=== PATIENT | male | born 1950 | race Caucasian/White ===

== ENCOUNTER 2017-08-29 13:47 | Emergency (ER) | payer OTHER ==
[~2017-08-29] VITALS: Ht 175.3 cm; Wt 82.0 kg
[2017-08-29 13:48] VITALS: BP 150/74; PULSE 77; RESP 16; TEMP 98.4; O2SAT 97
[2017-08-29] MEDS ORDERED: AMLO10TA2 PO (16:21)
[2017-08-29] MEDS ORDERED: LOSA100T2 PO (16:21)
[2017-08-29] MEDS ORDERED: GABA300C5 PO (16:21)
[2017-08-29] MEDS ORDERED: AMIO200T PO (16:21)
--- NOTE | 2017-08-29 16:21 | PD ---
HPI Chief Complaint: Medication Refill Request Time Seen by Provider: 15:57 Travel History International Travel<30 days: No Contact w/Intl Traveler<30days: No Traveled to known affect area: No History of Present Illness HPI Patient is a 59-year-old male who comes in for medication refills. He says he moved [place] and he cannot get an appointment with a doctor here until October 22. He has no medical complaints at this time. [facility], [facility] Past Medical History Anxiety: Yes Heart Rhythm Problems: Yes High Cholesterol: Yes Hypertension: Yes Neurologic: Yes (neuropathy ) Influenza Vaccination: Yes Social History Alcohol Use: No Tobacco Use: Yes (8 cigarettes per day) Substance Use: No Allergies-Medications (Allergen,Severity, Reaction): Coded Allergies: Sulfa (Sulfonamide Antibiotics) (Verified Allergy, Unknown, 08/29/17) Reported Meds & Prescriptions Reported Meds & Active Scripts Active Gabapentin 300 Mg Cap 300 Mg PO BID Losartan-Hydrochlorothiazide 100-25 Mg Tab 1 Tab PO DAILY Amiodarone (Amiodarone HCl) 200 Mg Tab 200 Mg PO DAILY Amlodipine (Amlodipine Besylate) 10 Mg Tab 10 Mg PO DAILY Review of Systems HENT: No: Headaches, Lightheadedness Cardiovascular: No: Chest Pain or Discomfort Respiratory: No: Shortness of Breath Gastrointestinal: No: Nausea, Vomiting Musculoskeletal: No: Myalgias Skin: No Rash, No Change in Pigmentation Neurologic: No: Weakness, Dizziness Physical Exam Narrative GENERAL: Awake and alert, in no acute distress. SKIN: Focused skin assessment warm/dry. HEAD: Atraumatic. Normocephalic. EYES: Pupils equal and round. No scleral icterus. Extraocular movements intact. ENT: Mucous membranes pink and moist. CARDIOVASCULAR: Regular rate and rhythm. No murmur appreciated. RESPIRATORY: No accessory muscle use. Clear to auscultation. Breath sounds equal bilaterally. MUSCULOSKELETAL: No obvious deformities. No clubbing. No cyanosis. No edema. NEUROLOGICAL: Awake and alert. No obvious cranial nerve deficits. Motor grossly within normal limits. Normal speech. Data Data Last Documented VS Vital Signs Date Time Temp Pulse Resp B/P (MAP) Pulse Ox O2 Delivery O2 Flow Rate FiO2 08/29/17 13:48 98.4 77 16 150/74 (99) 97 Room Air MDM Medical Decision Making Medical Screen Exam Complete: Yes Emergency Medical Condition: Yes Differential Diagnosis Medication refill versus hypertension versus lack of resources Narrative Course Patient is a 67-year-old male here for medication refill. He has no complaints at this time. Patient advised he should call his doctor for an earlier appointment. Advised he should also call his doctor in [place] for refills on his medications. He will be given prescriptions for his amlodipine, amiodarone , losartan, gabapentin. Advised to go to the [facility] if needed. Advised to return to the ED as needed for any worsening symptoms. Diagnosis Primary Impression: Medication refill Referrals: [facility] call for appointment Patient Instructions: General Instructions, Medicine Refill (ED) Additional Instructions: Follow-up with a primary care doctor. Return to the emergency department as needed for any worsening symptoms. Scripts Gabapentin (Gabapentin) 300 Mg Cap 300 MG PO BID, #60 CAP 0 Refills Prov: Janice Lou MD 08/29/17 Losartan-Hydrochlorothiazide (Losartan-Hydrochlorothiazide) 100-25 Mg Tab 1 TAB PO DAILY for Blood Pressure Management, #30 TAB 0 Refills Prov: Janice Lou MD 08/29/17 Amiodarone (Amiodarone) 200 Mg Tab 200 MG PO DAILY for Regulate Heart Beat, #30 TAB 0 Refills Prov: Janice Lou MD 08/29/17 Amlodipine (Amlodipine) 10 Mg Tab 10 MG PO DAILY for Blood Pressure Management, #30 TAB 0 Refills Prov: Janice Lou MD 08/29/17 Disposition: 01 DISCHARGE HOME Condition: Stable Janice Lou MD Aug 29, 2017 16:21
== END 2017-08-29 17:12 | disposition home or self-care (01) ==
LOC: NEPD 13:47
DX: Z76.0 Encounter for issue of repeat prescription (principal); F41.9 Anxiety disorder, unspecified; E78.00 Pure hypercholesterolemia, unspecified; I10 Essential (primary) hypertension; G62.9 Polyneuropathy, unspecified; F17.210 Nicotine dependence, cigarettes, uncomplicated; Z79.899 Other long term (current) drug therapy
CPT/HCPCS: 99281

== ENCOUNTER 2017-10-23 16:53 | Emergency (ER) | payer OTHER ==
[~2017-10-23 16:53] MED LIST: AMIO200T PO; AMLO10TA2 PO; GABA300C5 PO; LOSA100T2 PO
[2017-10-23 16:54] VITALS: BP 145/67; PULSE 64; RESP 16; TEMP 98.2; O2SAT 99
[2017-10-23] MEDS ORDERED: IOHEXOL 350 MG/ML 10 ML VIAL (for RAD DIAG) IVCONTRAST ONE (16:54)
[2017-10-23] MEDS ORDERED: ASPI-516 CHEW (18:27)
[2017-10-23 19:10] LABS: AUTOMATED NEUTROPHIL # 8.4 TH/MM3 (1.8-7.7); BASOPHIL % 0.4 % (0.0-2.0); EOSINOPHIL # 0.1 TH/MM3 (0-0.4); EOSINOPHIL % 0.5 % (0.0-4.0); HEMATOCRIT 40.7 % (39.0-51.0); HEMOGLOBIN 13.9 GM/DL (13.0-17.0); LYMPH % 19.4 % (9.0-44.0); LYMPHOCYTE # 2.2 TH/MM3 (1.0-4.8); MEAN CELL VOLUME 90.8 FL (80.0-100.0); MEAN CORPUSCULAR HEMOGLOBIN 30.9 PG (27.0-34.0); MEAN PLATELET VOLUME 9.1 FL (7.0-11.0); MONO % 4.8 % (0.0-8.0); MONOCYTE # 0.5 TH/MM3 (0-0.9); NEUT % 74.9 % (16.0-70.0); PLATELET COUNT 286 TH/MM3 (150-450); RED BLOOD COUNT 4.49 MIL/MM3 (4.50-5.90); RED CELL DISTRIBUTION WIDTH 13.1 % (11.6-17.2); WHITE BLOOD COUNT 11.2 TH/MM3 (4.0-11.0)
[2017-10-23 19:14] LABS: ALBUMIN 3.7 GM/DL (3.4-5.0); AST (GOT) 13 U/L (15-37); BICARBONATE 31.4 MEQ/L (21.0-32.0); BLOOD UREA NITROGEN 18 MG/DL (7-18); CHLORIDE 105 MEQ/L (98-107); GLOMERULAR FILTRATION RATE 84 ML/MIN (>89); GLUCOSE,RANDOM 98 MG/DL (74-106); SODIUM (NA) 142 MEQ/L (136-145)
[2017-10-23 19:15] LABS: ALT (GPT) 24 U/L (12-78)
[2017-10-23 19:17] LABS: ALKALINE PHOSPHATASE 81 U/L (45-117); TOTAL BILIRUBIN ADULT 0.5 MG/DL (0.2-1.0); TOTAL PROTEIN 7.2 GM/DL (6.4-8.2)
--- NOTE | 2017-10-23 19:46 | PD ---
HPI Chief Complaint: GI Complaint Time Seen by Provider: 18:28 Travel History International Travel<30 days: No Contact w/Intl Traveler<30days: No Traveled to known affect area: No History of Present Illness HPI 67-year-old male that presents to the ED for evaluation of lower abdominal pain with also constipation. Per patient his been having sensation of having to go have a stool for the past couple days but nothing coming out. Per patient he gets minimal relief. He did have a bowel movement today will was small and it was like miguelito. Patient comes here with a piece of paper that shows different types of stool and she points to the one on the top. The patient his stool is usually normal but for the past 2 months as been like this. Per patient she does have lower abdominal discomfort. Feels like he has to strain. He denies any urinary symptoms. No chest pain or shortness of breath. No nausea or vomiting. He has no medical provider at this time and came here to get evaluated and help. Per patient the pain is 4 out of 10. No blood in the stool. No changes in the color of the stool. PFSH Past Medical History Anxiety: Yes Heart Rhythm Problems: Yes Cardiovascular Problems: Yes High Cholesterol: Yes Hypertension: Yes Medical other: Yes (skin cancer) Neurologic: Yes (neuropathy ) Tetanus Vaccination: Unknown Influenza Vaccination: Yes Past Surgical History Other Surgery: Yes (colonoscopy, endoscopy) Social History Alcohol Use: No Tobacco Use: Yes (8 cigarettes per day) Substance Use: No Allergies-Medications (Allergen,Severity, Reaction): Coded Allergies: Sulfa (Sulfonamide Antibiotics) (Verified Allergy, Unknown, 10/23/17) Reported Meds & Prescriptions Reported Meds & Active Scripts Active Miralax Powder (Polyethylene Glycol 3350 Powder) 17 Gm Powd 17 Gm PO DAILY Mix and dissolve one measuring cap-ful (17 grams) in water or juice. Golytely 236 gm (Polyethylene Glycol/Electrolytes) 4,000 Ml Soln 4,000 Ml PO ONCE Gabapentin 300 Mg Cap 300 Mg PO BID Losartan-Hydrochlorothiazide 100-25 Mg Tab 1 Tab PO DAILY Amiodarone (Amiodarone HCl) 200 Mg Tab 200 Mg PO DAILY Amlodipine (Amlodipine Besylate) 10 Mg Tab 10 Mg PO DAILY Reported Aspirin 81 Mg Chew 81 Mg CHEW DAILY Review of Systems Except as stated in HPI: all other systems reviewed are Neg Physical Exam Narrative GENERAL: SKIN: Warm and dry. HEAD: Atraumatic. Normocephalic. EYES: Pupils equal and round. No scleral icterus. No injection or drainage. ENT: No nasal bleeding or discharge. Mucous membranes pink and moist. Tongue is midline. No uvula deviation. NECK: Trachea midline. No JVD. CARDIOVASCULAR: Regular rate and rhythm. No murmurs, S3, S4. RESPIRATORY: No accessory muscle use. Clear to auscultation. Breath sounds equal bilaterally. GASTROINTESTINAL: Abdomen soft, has reproducible pain in the lower abdomen with deep palpation, nondistended. Hepatic and splenic margins not palpable. MUSCULOSKELETAL: Extremities without clubbing, cyanosis, or edema. No obvious deformities. Full range of motion of the upper and lower extremities bilaterally. 2+ pulses bilaterally. NEUROLOGICAL: Awake and alert. No obvious cranial nerve deficits. Motor grossly within normal limits. Five out of 5 muscle strength in the arms and legs. Normal speech. PSYCHIATRIC: Appropriate mood and affect; insight and judgment normal. Data Data Last Documented VS Vital Signs Date Time Temp Pulse Resp B/P (MAP) Pulse Ox O2 Delivery O2 Flow Rate FiO2 10/23/17 19:57 97.9 68 15 156/79 (104) 98 Room Air Orders Orders Complete Blood Count With Diff (10/23/17 18:36) Comprehensive Metabolic Panel (10/23/17 18:36) Ct Abd/Pel W Iv Contrast(Rout) (10/23/17 18:36) Iv Access Insert/Monitor (10/23/17 18:36) Iohexol 350 Inj (Omnipaque 350 Inj) (10/23/17 16:54) Labs Laboratory Tests Test 10/23/17 18:40 White Blood Count 11.2 TH/MM3 Red Blood Count 4.49 MIL/MM3 Hemoglobin 13.9 GM/DL Hematocrit 40.7 % Mean Corpuscular Volume 90.8 FL Mean Corpuscular Hemoglobin 30.9 PG Mean Corpuscular Hemoglobin Concent 34.0 % Red Cell Distribution Width 13.1 % Platelet Count 286 TH/MM3 Mean Platelet Volume 9.1 FL Neutrophils (%) (Auto) 74.9 % Lymphocytes (%) (Auto) 19.4 % Monocytes (%) (Auto) 4.8 % Eosinophils (%) (Auto) 0.5 % Basophils (%) (Auto) 0.4 % Neutrophils # (Auto) 8.4 TH/MM3 Lymphocytes # (Auto) 2.2 TH/MM3 Monocytes # (Auto) 0.5 TH/MM3 Eosinophils # (Auto) 0.1 TH/MM3 Basophils # (Auto) 0.0 TH/MM3 CBC Comment DIFF FINAL Differential Comment Blood Urea Nitrogen 18 MG/DL Creatinine 0.90 MG/DL Random Glucose 98 MG/DL Total Protein 7.2 GM/DL Albumin 3.7 GM/DL Calcium Level 9.0 MG/DL Alkaline Phosphatase 81 U/L Aspartate Amino Transf (AST/SGOT) 13 U/L Alanine Aminotransferase (ALT/SGPT) 24 U/L Total Bilirubin 0.5 MG/DL Sodium Level 142 MEQ/L Potassium Level 3.2 MEQ/L Chloride Level 105 MEQ/L Carbon Dioxide Level 31.4 MEQ/L Anion Gap 6 MEQ/L Estimat Glomerular Filtration Rate 84 ML/MIN MDM Medical Decision Making Medical Screen Exam Complete: Yes Emergency Medical Condition: Yes Medical Record Reviewed: Yes Interpretation(s) CBC & BMP Diagram 10/23/17 18:40 Total Protein 7.2, Albumin 3.7, Calcium Level 9.0, Alkaline Phosphatase 81, Aspartate Amino Transf (AST/SGOT) 13 L, Alanine Aminotransferase (ALT/SGPT) 24, Total Bilirubin 0.5 Last Impressions Abdomen/Pelvis CT 10/23/17 1836 Signed Impressions: Service Date/Time: September 19:41 - CONCLUSION: 1. Moderate stool in the colon. No obstruction or acute inflammatory changes. 2. Benign-appearing cysts of the liver and each kidney. 3. Solitary nonobstructing stones in each kidney. 4. Gallstones. No perceptible acute inflammatory changes. No duct stone or ductal dilatation. 5. Multifocal compression fractures of the visualized spine. 6. Small, fat-containing inguinal hernia on the left. 7. 10 x 24 mm nodule the left adrenal gland, statistically most likely an adenoma. Aamir Lopez MD Differential Diagnosis Diverticulitis versus constipation versus fecal impaction versus colitis Narrative Course 67-year-old male that presents to the ED for evaluation of lower abdominal pain and possible constipation. Patient was properly examined and was found to have signs and symptoms which appear to be consistent with likely constipation. Patient does have lower abdominal pain. No history of this in the past. There is some concern for diverticulitis. Labs and imaging were ordered. Labs and imaging showed constipation otherwise unremarkable. Patient does have chronic changes to his back that he is aware of. Patient also notes that he has restricted kidney stones. Patient denies taking narcotic medication. At this time patient will be given a trial of MiraLAX as well as GoLYTELY. I told the patient to use GoLYTELY to help him go but to be careful with it as he can cause diarrhea. Patient was told to take MiraLAX every day for at least a month to get him more regulated. He can use this [id number] as well. Patient is Divehi-speaking only and I did offer patient translation services but he felt comfortable with my Divehi and declined translation services. All questions were answered to the best of my ability. Follow with PCP. See ED worsening symptoms. Diagnosis Primary Impression: Constipation Qualified Codes: K59.01 - Slow transit constipation Referrals: Tani Tucker MD [facility] PO Patient Instructions: General Instructions Additional Instructions: Tomate el Golytely un baso cada 10-30 minutos hasta que sientas que puedes hacer del julieta. Si sientes que te hayudo y te sientes mejor, no te tomes lo demas que te quede. En otras palabras no te tomes toda la botella si no la necesitas. Tomate el Miralax sherri vez al elisabeth por un mes para que te regule tu mikhail. Jay agua todos los medeiros y jay freya verdura y fruta para que te ayude a regularte. Follow up with PCP. See ED if worst. Med/Other Pt SpecificInfo: Prescription(s) given Scripts Polyethylene Glycol 3350 Powder (Miralax Powder) 17 Gm Powd 17 GM PO DAILY for Constipation, #1 CAN 0 Refills Mix and dissolve one measuring cap-ful (17 grams) in water or juice. Prov: Francis Ponce MD 10/23/17 Peg-Electrolytes (Golytely 236 gm) 4,000 Ml Soln 4000 ML PO ONCE for Bowel Cleanser, #1 CONTAINER 0 Refills Prov: Francis Ponce MD 10/23/17 Disposition: 01 DISCHARGE HOME Condition: Stable Erlin Oscar Oct 23, 2017 19:46
[2017-10-23 19:57] VITALS: BP 156/79; PULSE 68; RESP 15; TEMP 97.9; O2SAT 98
--- NOTE | 2017-10-23 20:16 | RADRPT ---
EXAM DATE/TIME: 10/23/2017 19:41 [place] COMPARISON: No previous studies available for comparison. INDICATIONS : Patient complains of abdominal pain and constipation. IV CONTRAST: 95 cc Omnipaque 350 (iohexol) IV ORAL CONTRAST: No oral contrast ingested. RADIATION DOSE: 10.00 CTDIvol (mGy) MEDICAL HISTORY : Cardiovascular disease. Hypertension. SURGICAL HISTORY : None. ENCOUNTER: Initial ACUITY: 3 days PAIN SCALE: 10/10 LOCATION: abdomen TECHNIQUE: Volumetric scanning of the abdomen and pelvis was performed. Using automated exposure control and ad justment of the mA and/or kV according to patient size, radiation dose was kept as low as reasonably achievable to obtain optimal diagnostic quality images. DICOM format image data is available electro nically for review and comparison. FINDINGS: LOWER LUNGS: The visualized lower lungs are clear. LIVER: Multiple scattered hepatic cysts up to 2 cm in size. There are stones up to 14 mm in size in the gall bladder. No associated inflammatory changes are demonstrated. There is no ductal stone or ductal dila tation. SPLEEN: Normal size without lesion. PANCREAS: Within normal limits. KIDNEYS: Normal in size and shape. There is no mass, stone or hydronephrosis. ADRENAL GLANDS: There is 10 x 24 mm nodularity of the left adrenal gland. VASCULAR: There is no aortic aneurysm. BOWEL/MESENTERY: No obstruction or acute inflammatory changes are seen. Moderate stool in the colon, especially the re ctum. The appendix is well-visualized, normal. ABDOMINAL WALL: Within normal limits. RETROPERITONEUM: There is no lymphadenopathy. BLADDER: No wall thickening or mass. REPRODUCTIVE: Within normal limits. INGUINAL: Small fat containing inguinal hernia on the left. MUSCULOSKELETAL: No definite acute bony abnormality seen. There are compression deformities of L5, L4, L2 and T11 vert ebral bodies noted, without a definite acute component. CONCLUSION: 1. Moderate stool in the colon. No obstruction or acute inflammatory changes. 2. Benign-appearing cysts of the liver and each kidney. 3. Solitary nonobstructing stones in each kidney. 4. Gallstones. No perceptible acute inflammatory changes. No duct stone or ductal dilatation. 5. Multifocal compression fractures of the visualized spine. 6. Small, fat-containing inguinal hernia on the left. 7. 10 x 24 mm nodule the left adrenal gland, statistically most likely an adenoma. Aamir Lopez MD on October 23, 2017 at 20:09 Board Certified Radiologist. This report was verified electronically.
[2017-10-23] MEDS ORDERED: MIRA3350 PO (20:32)
[2017-10-23] MEDS ORDERED: COLY4000S PO (20:32)
[2017-10-24] MEDS ORDERED: COLA100C5 PO (04:18)
== END 2017-10-23 20:50 | disposition home or self-care (01) ==
LOC: NEPE 16:53
DX: K59.01 Slow transit constipation (principal); I10 Essential (primary) hypertension; E78.00 Pure hypercholesterolemia, unspecified; Z72.0 Tobacco use
CPT/HCPCS: 74177; 80053; 85025; 99285; Q9967

== ENCOUNTER 2017-10-24 01:52 | Emergency (ER) | payer OTHER ==
[~2017-10-24 01:52] MED LIST changes: +ASPI-516 CHEW; +COLY4000S PO; +MIRA3350 PO
[2017-10-24] MEDS ORDERED: ONDANSETRON ODT 4 MG TAB PO ONE (03:00)
[2017-10-24] MEDS ORDERED: LIDOCAINE VISCOUS 2% SOLN 15 ML UDC SWISH-SWAL ONE (03:00)
[2017-10-24] MEDS ORDERED: ALUMINUM/MAGNESIUM/SIMETH 30 ML CUP PO ONE (03:00)
--- NOTE | 2017-10-24 04:13 | PD ---
HPI Chief Complaint: Abdominal Pain Time Seen by Provider: 02:33 Travel History International Travel<30 days: No Contact w/Intl Traveler<30days: No Traveled to known affect area: No History of Present Illness HPI Patient was here earlier today seen by the physician registered medical assistant Dayne and given a GoLYTELY prep to go home after his CT showed constipation. Patient went home he took it he said then is on began to contract but he said he had such hard stool in his rectum that he could not and became severely painful and he returns in severe pain lower left quadrant and rectal area. While he was waiting for this M.D. to come into the exam room HEENT went to the bathroom and using his finger he help extract hard rocks and then had a large large bowel movement according to the patient by the time I get to examine him he is completely relieved of the symptoms for which she came. The pain was a contraction-like colicky pain in the left lower quadrant. severe intermittent pain The GoLYTELY he had taken took time to work, but while he was waiting in the ER it seemed to have worked. His only past medical history is hypertension and arrhythmia for which she takes amlodipine he also is on amiodarone for a arrhythmia A. fib which she says is controlled with amiodarone [facility] Past Medical History Anxiety: Yes Heart Rhythm Problems: Yes Cardiovascular Problems: Yes High Cholesterol: Yes Hypertension: Yes Neurologic: Yes (neuropathy ) Past Surgical History Other Surgery: Yes (colonoscopy, endoscopy) Social History Alcohol Use: No Tobacco Use: Yes (8 cigarettes per day) Substance Use: No Allergies-Medications (Allergen,Severity, Reaction): Coded Allergies: Sulfa (Sulfonamide Antibiotics) (Verified Allergy, Unknown, 10/24/17) Reported Meds & Prescriptions Reported Meds & Active Scripts Active Colace (Docusate Sodium) 100 Mg Capsule 1 Cap PO BID 30 Days Miralax Powder (Polyethylene Glycol 3350 Powder) 17 Gm Powd 17 Gm PO DAILY Mix and dissolve one measuring cap-ful (17 grams) in water or juice. Golytely 236 gm (Polyethylene Glycol/Electrolytes) 4,000 Ml Soln 4,000 Ml PO ONCE Gabapentin 300 Mg Cap 300 Mg PO BID Losartan-Hydrochlorothiazide 100-25 Mg Tab 1 Tab PO DAILY Amiodarone (Amiodarone HCl) 200 Mg Tab 200 Mg PO DAILY Amlodipine (Amlodipine Besylate) 10 Mg Tab 10 Mg PO DAILY Reported Aspirin 81 Mg Chew 81 Mg CHEW DAILY Review of Systems Except as stated in HPI: all other systems reviewed are Neg Gastrointestinal: Positive: Abdominal Pain, Constipation Physical Exam Narrative GENERAL: speaks to me in croatian i translate Aox3 painfree when i arrive in room SKIN: Warm and dry. HEAD: Atraumatic. Normocephalic. EYES: Pupils equal and round. No scleral icterus. No injection or drainage. ENT: No nasal bleeding or discharge. Mucous membranes pink and moist. NECK: Trachea midline. No JVD. CARDIOVASCULAR: Regular rate and rhythm. RESPIRATORY: No accessory muscle use. Clear to auscultation. Breath sounds equal bilaterally. GASTROINTESTINAL: Abdomen soft, non-tender, nondistended. Hepatic and splenic margins not palpable. (exam is after large BM in bathroom of ER) MUSCULOSKELETAL: Extremities without clubbing, cyanosis, or edema. No obvious deformities. NEUROLOGICAL: Awake and alert. No obvious cranial nerve deficits. Motor grossly within normal limits. Five out of 5 muscle strength in the arms and legs. Normal speech. PSYCHIATRIC: Appropriate mood and affect; insight and judgment normal. Data Data Orders Orders Ondansetron Odt (Zofran Odt) (10/24/17 03:00) Al-Mag Hy-Si 40-40-4 Mg/Ml Liq (Mag-Al P (10/24/17 03:00) Lidocaine 2% Viscous (Xylocaine 2% Visco (10/24/17 03:00) Ed Discharge Order (10/24/17 04:11) MDM Medical Decision Making Medical Screen Exam Complete: Yes Emergency Medical Condition: Yes Differential Diagnosis Constipation versus mechanical obstruction versus colitis versus fecal impaction versus ileus Narrative Course Patient had taken the GoLYTELY had gone home with the day at home severe pain comes to the ER apparently with mechanical disimpaction himself in our bathroom he moved a large amount of fecal content from his colon and feels completely relieved the symptoms for which she came. He denies bleeding he denies any pain now in the rectum her lower abdomen he is discharged with the plan to continue 1 teaspoon of MiraLAX for the next 4 days and then switch over to Colace twice a day for the next week or 2 Diagnosis Primary Impression: Constipation Qualified Codes: K59.00 - Constipation, unspecified Additional Impression: Fecal impaction Scripts Docusate Sodium (Colace) 100 Mg Capsule 1 CAP PO BID for 30 Days Prov: Benito Palacios MD 10/24/17 Disposition: 01 DISCHARGE HOME Condition: Good Benito Palacios MD Oct 24, 2017 04:13
[2017-10-24] MEDS ORDERED: COLA100C5 PO (04:18)
== END 2017-10-24 04:48 | disposition home or self-care (01) ==
LOC: NEPC 01:52
DX: K59.00 Constipation, unspecified (principal); K56.41 Fecal impaction; F17.210 Nicotine dependence, cigarettes, uncomplicated; F41.9 Anxiety disorder, unspecified; E78.00 Pure hypercholesterolemia, unspecified; I10 Essential (primary) hypertension; G62.9 Polyneuropathy, unspecified; Z79.82 Long term (current) use of aspirin; Z79.899 Other long term (current) drug therapy
CPT/HCPCS: 99283